=== PATIENT | female | born 1965 | race Caucasian/White ===

== ENCOUNTER 2017-10-21 05:35 | Day surgery (SDC) | payer OTHER ==
[2017-10-19 13:09] LABS: BASOPHILS # (AUTO) 0.1 K/uL (0.0-0.2); BASOPHILS % (AUTO) 1.2 % (0.0-2.0); EOSINOPHILS # (AUTO) 0.2 K/uL (0.0-0.4); EOSINOPHILS % (AUTO) 3.7 % (0.0-4.0); HEMATOCRIT 35.8 % (36-48); HEMOGLOBIN 11.4 g/dL (12.0-16.0); LYMPHOCYTES # (AUTO) 1.6 K/uL (1.0-5.5); LYMPHOCYTES % (AUTO) 25.1 % (20.5-51.5); MEAN CORPUSCULAR HEMOGLOBIN 24 pg (27-31); MEAN CORPUSCULAR HGB CONC 32 % (32-36); MEAN CORPUSCULAR VOLUME 74 fL (79.0-98.0); MONOCYTES # (AUTO) 0.4 K/uL (0.0-1.0); MONOCYTES % (AUTO) 6.9 % (1.7-9.3); NEUTROPHILS # (AUTO) 3.9 K/uL (1.8-7.7); NEUTROPHILS % (AUTO) 63.1 % (40.0-70.0); PLATELET COUNT (AUTO) 348 K/uL (130-430); RED BLOOD CELL COUNT(AUTO) 4.83 MIL/uL (4.2-6.2); RED CELL DISTRIBUTION WIDTH 16.2 % (9.0-15.0); WHITE BLOOD COUNT (AUTO) 6.2 K/uL (4.8-10.8)
[2017-10-19 13:15] LABS: BILIRUBIN,URINE NEGATIVE (NEGATIVE); BLOOD, URINE 1+ (NEGATIVE); CLARITY/URINE SL HAZY (CLEAR); COLOR,URINE YELLOW (YELLOW); GLUCOSE,URINE NEGATIVE (NEGATIVE); KETONES,URINE NEGATIVE (NEGATIVE); LEUKOCYTE ESTERASE ,URINE TRACE (NEGATIVE); NITRITE, URINE POSITIVE (NEGATIVE); PH,URINE 5.5 (5.0-8.0); PROTEIN URINE NEGATIVE (NEGATIVE); UROBILINOGEN,URINE 0.2 (0.2-1.0)
[2017-10-19 13:24] LABS: HCG,QUAL RESULT NEGATIVE (NEGATIVE)
[2017-10-19 13:27] LABS: CREATININE 0.69 mg/dL (0.55-1.30); POTASSIUM 3.8 mmol/L (3.5-5.1)
[2017-10-19 13:37] LABS: BACTERIA,URINE MODERATE /HPF (None Seen); RBC,URINE 0-3 /HPF (0-3)
[2017-10-19 13:38] LABS: MUCUS,URINE None Seen /LPF (None Seen)
[~2017-10-21] VITALS: Ht 165.1 cm; Wt 83.9 kg
[2017-10-21] MEDS ORDERED: DEXAMETHASONE SOD PHOSPHATE 4 MG/ML VIAL IVP ONE (06:20)
[2017-10-21] MEDS ORDERED: LR 1,000 ML IV.SOLN IV ONE (06:20)
[2017-10-21] MEDS ORDERED: fentaNYL CITRATE 250 MCG/5 ML AMP IV ONE (06:20)
[2017-10-21] MEDS ORDERED: ROCURONIUM BROMIDE 10 MG/ML (ZEMURON) IV ONE (06:20)
[2017-10-21] MEDS ORDERED: KETOROLAC TROMETHAMINE 30 MG VIAL IVP ONE (06:20)
[2017-10-21] MEDS ORDERED: PROPOFOL 200MG/ 20ML VIAL (DIPRIVAN) IV ONE (06:20)
[2017-10-21] MEDS ORDERED: LIDOCAINE 1% 10 MG/ML, 20 ML MDV INJ ONE (06:20)
[2017-10-21] MEDS ORDERED: BUPIVACAINE /PF 0.5% 30 ML VIAL INJ ONE (06:20)
[2017-10-21] MEDS ORDERED: SODIUM BICARBONATE 4% (NEUT) 5 ML VIAL INJ ONE (06:20)
[2017-10-21] MEDS ORDERED: CEFAZOLIN 2 GM IVPB PREMIX 50 ML IV ONE (06:20)
[2017-10-21] MEDS ORDERED: MIDAZOLAM HCL 5 MG/5 ML VIAL IVP ONE (06:20)
[2017-10-21] MEDS ORDERED: SEVOFLURANE 15 MIN GAS INH ONE (06:20)
[2017-10-21] MEDS ORDERED: fentaNYL CITRATE/PF 100 MCG/2 ML AMP IVP ONE (06:20)
[2017-10-21] MEDS ORDERED: ONDANSETRON HCL 4 MG/2 ML VIAL IVP ONE (06:20)
[2017-10-21] MEDS ORDERED: LR 1,000 ML IV SCH (07:43)
[2017-10-21] MEDS ORDERED: MORPHINE SULFATE 10 MG/ML VIAL IVP PRN (07:45)
[2017-10-21] MEDS ORDERED: MEPERIDINE HCL/PF 25 MG/ML DISP.SYRIN IVP PRN (07:45)
[2017-10-21] MEDS ORDERED: MORPHINE 4 MG/ML INJ. SYRINGE IVP PRN ×2 (07:45)
[2017-10-21] MEDS ORDERED: ONDANSETRON HCL 4 MG/2 ML VIAL IVP PRN (09:30)
[2017-10-21] MEDS ORDERED: OXYCODONE/ACETAMINOPHEN 5-325 TABLET PO PRN (09:30)
[2017-10-21] MEDS ORDERED: PROMETHAZINE HCL 25 MG/ML AMP IM PRN (09:30)
[2017-10-21] MEDS ORDERED: MORPHINE SULFATE 10 MG/ML VIAL ONE (10:09)
[2017-10-21 11:07] VITALS: BP_SYST 125
== END 2017-10-21 12:50 | disposition home or self-care (01) ==
LOC: SDS 05:35 → SMU 05:35 → SDS 12:50
PROVIDERS: ATTEND Obstetrics & Gynecology
DX: D25.9 Leiomyoma of uterus, unspecified (principal); N80.0 Endometriosis of uterus; N70.11 Chronic salpingitis; M19.90 Unspecified osteoarthritis, unspecified site; Z83.3 Family history of diabetes mellitus; Z98.51 Tubal ligation status; E66.9 Obesity, unspecified; D64.9 Anemia, unspecified; Z68.31 Body mass index [BMI] 31.0-31.9, adult; E55.9 Vitamin D deficiency, unspecified
CPT/HCPCS: 36415; 58573; 80048; 81000; 84703; 85025; 86886; 86900; 86901; 87086; 88307; C1727; J0690; J1100; J1885; J2001; J2250; J2270; J2405; J2704; J3010 ×2; J3490; J7120; E0190